=== PATIENT | male | born 1960 | race Caucasian/White ===

== ENCOUNTER 2020-05-22 08:40 | Outpatient (CLI) | payer BC, SELFPAY ==
[2020-05-22 09:09] LABS: Basophils Absolute Auto 0.06 K/mm3 (0.00-0.10); Eosinophils Absolute Auto 0.25 K/mm3 (0.02-0.50); Eosinophils Percent Auto 4.2 % (1.0-6.0); Hematocrit 42.3 % (40.0-54.0); Immature Granulocyte Absolute 0.06 K/mm3 (0.00-0.00); Lymphocytes Absolute Auto 1.77 K/mm3 (1.10-4.50); Lymphocytes Percent Auto 29.6 % (18.0-42.0); Mean Corpuscular HGB Conc 33.1 g/dL (32.0-36.0); Mean Corpuscular Volume 93.8 fL (78.0-102.0); Mean Platelet Volume 10.4 fl (8.7-11.0); Monocytes Absolute Auto 0.61 K/mm3 (0.10-0.90); Monocytes Percent Auto 10.2 % (2.0-11.0); Neutrophils Absolute Auto 3.2 K/mm3 (1.7-7.2); Platelet Count Result 256 K/mm3 (150-420); Red Blood Count 4.51 M/mm3 (4.70-6.10); Red Cell Distribution Width 12.6 % (11.6-14.4)
[2020-05-22 10:15] LABS: Alanine Aminotransferase 45 U/L (16-63); Albumin Level 4.2 g/dL (3.4-5.0); Alkaline Phosphatase 46 U/L (46-116); Anion Gap 10 mmol/L (8-16); Aspartate Amino Transferase 22 U/L (15-37); Bilirubin,Total 0.4 mg/dL (0.00-1.00); Blood Urea Nitrogen 14 mg/dL (7-18); Carbon Dioxide 27 mmol/L (21-32); Chloride 106 mmol/L (98-108); Cholesterol 173 mg/dL (0-200); Estimated Glomerular Filt Rate > 60; Free T4 Free Thyroxine 0.98 ng/dL (0.76-1.46); Glucose 92 mg/dL (70-99); HDL Direct 51 mg/dL (40-60); LDL Cholesterol Calculated 105 mg/dL (<130); Osmolality Calculated 296 mOsm/kg (285-295); Potassium 4.6 mmol/L (3.5-5.1); Prostate Specific Antigen 0.8 ng/mL (< OR = 4.0); Sodium 143 mmol/L (136-145); Total Protein 7.1 g/dL (6.4-8.2); Triglycerides 83 mg/dL (0-150)
== END 2020-05-22 08:41 | disposition home or self-care (01) ==
PROVIDERS: PCP Internal Medicine; Visit Provider Internal Medicine
DX: E78.00 Pure hypercholesterolemia, unspecified (principal); I10 Essential (primary) hypertension; N42.9 Disorder of prostate, unspecified
CPT/HCPCS: 36415; 80053; 80061; 84153; 84439; 84443; 85025

== ENCOUNTER 2020-09-11 11:21 | Outpatient (CLI) | payer BC, SELFPAY | END 2020-09-11 11:22 | disposition home or self-care (01) | LOC: ANHCOVIDVC 11:21 | PROVIDERS: PCP Internal Medicine | DX: Z23 Encounter for immunization (principal) | CPT/HCPCS: 0001A; 91300 ==

== ENCOUNTER 2020-10-02 11:21 | Outpatient (CLI) | payer BC, SELFPAY | END 2020-10-02 11:22 | disposition home or self-care (01) | LOC: ANHCOVIDVC 11:21 | PROVIDERS: PCP Internal Medicine | DX: Z23 Encounter for immunization (principal) | CPT/HCPCS: 0002A; 91300 ==

== ENCOUNTER 2021-10-30 10:56 | Observation (INO) | payer BC, SELFPAY ==
[2021-10-30] VITALS (11 sets, daily range): BP systolic 128–140; BP diastolic 74–86; PULSE 76–94; RESP 16–18; TEMP 36.3–36.9; O2SAT 93–100; BMI 32.8
--- NOTE | ~2021-10-30 | XR_ITS ---
EXAMINATION: XR chest 2V DATE: 10/30/2021 11:31 INDICATION: Chest pain TECHNIQUE: PA and lateral views of the chest are obtained. COMPARISON: None available FINDINGS: The lungs are free of acute opacities. There is no pleural effusion or pneumothorax. The ca rdiomediastinal silhouette is normal. There is moderate thoracic spondylosis. IMPRESSION: 1. No acute cardiopulmonary abnormality. Reviewed, dictated and finalized at location B.
--- NOTE | 2021-10-30 10:58 | ECG_ITS ---
Measurements Intervals [place] Rate: 81 P: 28 AL: 154 QRS: 17 QRSD: 92 T: 81 QT: 344 QTc: 399 Interpretive Statements SINUS RHYTHM NONSPECIFIC ST & T-WAVE ABNORMALITY NO PREVIOUS ECG AVAILABLE FOR COMPARISON Electronically Signed On 10-30-2021 12:52:30 CDT by Olaf Jimenez M.D.
[2021-10-30 11:23] LABS: Basophils Percent Auto 0.3 % (0.2-1.2); Eosinophils Absolute Auto 0.2 K/mm3 (0-0.3); Eosinophils Percent Auto 1.9 % (0-4.4); Hematocrit 42.6 % (42.0-52.0); Hemoglobin 14.6 g/dL (14.0-18.0); Immature Granulocyte Absolute 0.02 K/mm3 (0.00-0.031); Immature Granulocyte Percent A 0.3 % (0-0.5); Lymphocytes Absolute Auto 0.43 K/mm3 (0.9-3.2); Lymphocytes Percent Auto 5.4 % (18.3-44.2); Mean Corpuscular HGB Conc 34.3 g/dl (32-36); Mean Corpuscular Hemoglobin 31.3 pg (26-34); Mean Corpuscular Volume 91.4 fl (80-100); Mean Platelet Volume 10.2 fl (7.4-10.4); Monocytes Absolute Auto 0.4 K/mm3 (0.1-0.6); Monocytes Percent Auto 5.3 % (2.6-8.5); Neutrophils Absolute Auto 6.9 K/mm3 (1.3-6.7); Neutrophils Percent Auto 86.8 % (45.5-73.1); Platelet Count Result 230 k/mm3 (150-375); Red Blood Count 4.66 M/mm3 (4.6-6.20); Red Cell Distribution Width 12.6 % (11.5-14.5)
[2021-10-30 11:34] LABS: Alanine Aminotransferase 44 U/L (4-50); Albumin Level 4.5 g/dL (3.5-5.1); Alkaline Phosphatase 44 U/L (38-126); Anion Gap 11 mmol/L (8-16); Aspartate Amino Transferase 43 U/L (17-59); Bilirubin,Total 0.6 mg/dL (0.2-1.3); Blood Urea Nitrogen 20 mg/dL (9-20); Calcium 8.8 mg/dL (8.4-10.2); Carbon Dioxide 24 mmol/L (22-30); Chloride 103 mmol/L (98-107); Estimated CRCL calculation 94 ml/min; Estimated Glomerular Filt Rate > 60; Glucose 133 mg/dL (65-110); Lipase 114 U/L (23-300); Potassium 3.9 mmol/L (3.4-5.0); Prothrombin Time 13.1 Seconds (11.1-14.7); Sodium 138 mmol/L (137-145)
--- NOTE | 2021-10-30 11:34 | ED.CHESTPAIN ---
HPI - Chest Pain General Chief Complaint: Chest Pain Stated Complaint: chest pain Time Seen by Provider: 10/30/21 11:09 Source: patient Mode of arrival: ambulatory Limitations: no limitations History of Present Illness HPI narrative: Patient is a 61-year-old male complain of chest pain, midsternal, tightness, was 7 out of 10, currently 2 out of 10, nonradiating started early this morning. Patient denies any shortness of breath, abdominal pain, nausea, vomiting, diaphoresis, fever or chills. Related Data Allergies Allergy/AdvReac Type Severity Reaction Status Date / Time No Known Allergies Allergy Verified 10/30/21 11:38 Review of Systems Review of Systems: All systems reviewed & are unremarkable except as noted in HPI and below Constitutional: Constitutional: Denies body ache(s), Denies chills, Denies excessive sweating, Denies fatigue, Denies fever(s), Denies headache(s), Denies lethargy, Denies malaise, Denies weakness and Denies weight loss Eyes: Eyes: Denies blurry vision, Denies change in vision and Denies loss of vision ENT: Denies dizziness, Denies ear discharge, Denies headache(s), Denies lip swelling, Denies epistaxis, Denies nasal congestion, Denies neck pain, Denies throat swelling and Denies tongue swelling Cardiovascular: Cardiovascular: Denies diaphoresis, Denies rapid heart rate, Denies edema, Denies irregular heart rhythm, Denies lightheadedness, Denies palpitations, Denies dyspnea and Denies dyspnea on exertion Respiratory: Respiratory: Denies chest congestion, Denies cough, Denies hemoptysis, Denies dyspnea and Denies dyspnea on exertion Gastrointestinal: Gastrointestinal: Denies abdominal pain, Denies melena, Denies hematochezia, Denies diarrhea, Denies nausea, Denies vomiting and Denies hematemesis Musculoskeletal: Musculoskeletal: Denies abnormal gait, Denies deformity, Denies joint swelling, Denies limited range of motion, Denies neck pain and Denies numbness Neurologic: Denies Abnormal speech present, Denies abnormal gait, Denies confusion, Denies dizziness, Denies headache(s), Denies focal weakness, Denies loss of vision, Denies numbness, Denies Other visual disturbances, Denies Sensory deficit (Neuro) and Denies weakness Psychiatric: Psychiatric: Denies confusion, Denies depression, Denies auditory hallucinations, Denies homicidal ideation and Denies suicidal ideation Endocrine: Endocrine: Denies cold intolerance, Denies excessive sweating, Denies fatigue, Denies heat intolerance and Denies palpitations Hematologic/Lymphatic: Hematologic/Lymphatic: Denies easy bleeding and Denies easy bruising Allergic/Immunologic: Allergic/Immunologic: Denies lip swelling, Denies throat swelling and Denies tongue swelling PMFSH Comments Past medical history: Hypertension, hyperlipidemia Family history: Positive for coronary artery disease, [place] Social history: Non-smoker no EtOH or drug use Exam Const: General: cooperative, healthy appearing, comfortable, no acute distress, well developed, alert and awake; No confusion Orientation/consciousness: oriented to person, oriented to place, oriented to time, patient oriented x3 and No confusion Limitations: no limitations HENMT: Head: normal to inspection, normocephalic and atraumatic Ears: hearing grossly normal bilaterally, TM normal on the right and TM normal on the left General nose exam: Normal external nose present, Normal nares present and No nasal discharge present Face and sinus: normal facial exam Mouth: Yes Normal oral and palatal mucosa present, Yes lip normal, Yes tongue normal and Yes oropharynx normal Throat: posterior oropharynx normal, tonsils normal and uvula midline Eyes: General: appearance normal, both eyes and all related structures Pupils: Equal, round and reactive pupils present EOM: EOMs intact bilaterally Neck: Neck: normal visual inspection, full ROM, no lymphadenopathy and no meningeal signs Chest: Chest palpation & inspection: normal inspecti
[2021-10-30 11:45] LABS: Troponin I < 0.012 ng/mL (0.000-0.034)
[2021-10-30 14:06] LABS: SARS-CoV-2 RNA PCR Negative
[2021-10-30 14:17] LABS: Troponin I < 0.012 ng/mL (0.000-0.034)
[2021-10-30] MEDS: ASPIRIN 81 MG CHEWABLE TABLET 324 MG PO (14:26)
[2021-10-30] MEDS: ACETAMINOPHEN 325 MG TABLET 650 MG (14:27)
--- NOTE | 2021-10-30 15:00 | PM.IMHP ---
H&P: HPI History of Present Illness Date/Time: 10/30/21 15:00 <Rosi Diaz PA-C - Last Filed: 10/30/21 18:53> Chief Complaint: Chest pain. <Rosi Diaz PA-C - Last Filed: 10/30/21 18:53> Narrative: This is a pleasant 61-year-old male with hypertension, dyslipidemia, and GERD who presented to the emergency department from home for evaluation of chest pain. He had barbecue for lunch and dinner yesterday and he felt okay when he went to bed. Around midnight he was wakened from sleep with midsternal tightness and burning which he initially attributed to indigestion. He took Tums that he keeps at bedside and got up to walk around a bit at which time he started to belch with mild improvement in his symptoms. The pain did not radiate and he noticed no significant aggravating or alleviating factors. He was able to fall back asleep but he did not sleep well due to continued symptoms and he came in today for evaluation. With further questioning he does also complain of a mild, frontal headache and dizziness however he denies associated lightheadedness, sweats, nausea, vomiting, and shortness of breath. Vital signs were stable on arrival today and his imaging and lab work have been essentially unremarkable. At the time of this dictation he has had negative troponins x2 and his EKG showed a sinus rhythm with nonspecific ST T-wave abnormalities. Given his risk factors and family history, I was asked to admit him overnight for closer observation and Cardiology consultation. At this time he has no significant discomfort and he is resting comfortably though he continues to have a mild headache. <Rosi Diaz PA-C - Last Filed: 10/30/21 18:53> Review of Systems Review of Systems: Twelve systems were reviewed. No fever, chills, or sweats. It is not necessarily unusual for him to have headaches. No cold or flu symptoms. No sick contacts. 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 He is also quite active around the house though over the last year so he has noticed increasing fatigue and shortness of breath when doing yard work and gardening though he has not had exertional chest pain. He denies nausea and vomiting. No melena or hematochezia. No history of peptic ulcers, pancreatitis, or gallbladder disease. No significant NSAID use. He has never had signs or symptoms of alcohol withdrawal. Except as documented, all other systems were reviewed and are negative. <Rosi Diaz PA-C - Last Filed: 10/30/21 18:53> [facility] Past Medical History Medical History: Medical History (Updated 10/30/21 @ 18:41 by Rosi Diaz PA-C) Arthritis Daily consumption of alcohol Dyslipidemia Gastroesophageal reflux disease Gout Hypertension <Rosi Diaz PA-C - Last Filed: 10/30/21 18:53> Surgical History Surgical History: Surgical History (Updated 10/30/21 @ 18:38 by Rosi Diaz PA-C) History of vasectomy History of wisdom tooth extraction <Rosi Diaz PA-C - Last Filed: 10/30/21 18:53> Family History Family History: Family History (Updated 10/30/21 @ 18:39 by Rosi Diaz PA-C) Father Lung cancer Acute myocardial infarction Mother Breast cancer <Rosi Diaz PA-C - Last Filed: 10/30/21 18:53> Social History Social History: Social History (Updated 10/30/21 @ 18:40 by Rosi Diaz PA-C) Social History: Surrogate decision maker: Andie Vuong, spouse. Code status: Full code. Smoking status: Never smoker Alcohol intake: current Drinks per week: 24 Alcohol use details: 3 to 4 beers most nights of the week in addition to a whiskey drink. Substance use: current Substance use type: marijuana Additional living arrangements comments: The patient lives with his in [place]. Occupation/Education: retired Spiritual care concerns: No <Rosi Diaz PA-C - Last Filed: 10/30/21 18
[2021-10-30 17:49] LABS: Troponin I < 0.012 ng/mL (0.000-0.034)
--- NOTE | 2021-10-30 18:28 | PC.NURSE ---
This patient, Rey Vuong, was admitted to IMU Room 209-01. Patient/family oriented to hospital policies and general routines including ID bracelet, bed and alarms, visiting hours, pain management, procedures, bathroom and other care routines, personal items, smoking policy, room service/diet, and visiting hours. Information on how to activate the Rapid Response Team has been discussed. Patient/Family are encouraged to report perceived risks to care and to ask questions if they do not understand what they are told or what they should do.
[2021-10-30] MEDS: PANTOPRAZOLE 40 MG TABLET PO (21:06)
[2021-10-31] VITALS (7 sets, daily range): BP systolic 116–131; BP diastolic 71–76; PULSE 70–84; RESP 16–18; TEMP 36.2–36.6; O2SAT 95–98
[2021-10-31 05:15] LABS: Anion Gap 7 mmol/L (8-16); Blood Urea Nitrogen 19 mg/dL (9-20); Calcium 8.2 mg/dL (8.4-10.2); Carbon Dioxide 23 mmol/L (22-30); Chloride 106 mmol/L (98-107); Estimated CRCL calculation 86 ml/min; Estimated Glomerular Filt Rate > 60; Glucose 100 mg/dL (65-110); Magnesium 1.9 mg/dL (1.6-2.3); Phosphorus 3.1 mg/dL (2.5-4.5); Potassium 3.8 mmol/L (3.4-5.0); Sodium 136 mmol/L (137-145)
--- NOTE | 2021-10-31 08:25 | PM.CNCAR ---
Assessment and Plan Assessment and plan (1) Chest pain: Qualifiers: Chest pain type: unspecified Qualified Code(s): R07.9 - Chest pain, unspecified Code(s): R07.9 - Chest pain, unspecified Status: Acute Assessment and Plan: Chest discomfort consistent with GERD. No exertional pain, negative biomarkers, normal EKG. Agree with discontinuing celecoxib Agree with PPI Reviewed signs and symptoms of heart disease with the patient and congratulated the patient on being proactive about taking care of his blood pressure, hyperlipidemia etc.. Okay for discharge from my point of view My office will arrange an outpatient stress test (2) Hypertension: Code(s): I10 - Essential (primary) hypertension Status: Acute Assessment and Plan: Blood pressure at goal (3) Dyslipidemia: Code(s): E78.5 - Hyperlipidemia, unspecified Status: Acute Assessment and Plan: Takes simvastatin (4) Gastroesophageal reflux disease: Code(s): K21.9 - Gastro-esophageal reflux disease without esophagitis Status: Acute Assessment and Plan: Symptoms consistent with GERD History of Present Illness History of Present Illness Consult date/time: 10/31/21 08:25 Requesting physician: Jared Jaramillo MD Consult reason: chest pain Reason For Visit: Chest pain Narrative: Rey Vuong is a 61 y.o. male whom I was asked to see at the request of Dr. Jaramillo for my advice and opinion regarding his chest pain in consultation. He has a history of hypertension, hyperlipidemia and GERD. Nonsmoker. Positive family history of heart disease. Mr. Vuong has been having trouble for a few months working up with some heartburn, usually relieved by belching and a couple of Tums. On 10/29/2021 he went to bed as usual with no problems but woke up around midnight with substernal chest discomfort described as a bad heartburn. He also felt a little dizzy and short of breath and had a headache. There is no nausea, vomiting, diaphoresis or radiation. He got up and took his Tums but this time the discomfort did not go away. His was concerned and he came to the emergency room. He was started on pantoprazole and the discomfort has resolved. The patient can exert with yd work etc. with no particular problems with any chest pain pressure or tightness or heartburn. He has noted a little more WELCH than he used to have. Review of Systems Constitutional: Constitutional: Denies fatigue and Denies weakness Eyes: Eyes: Reports no additional eye complaints ENT: Denies epistaxis Cardiovascular: Cardiovascular: Reports chest pain, Denies diaphoresis, Denies pedal edema, Reports lightheadedness and Denies palpitations Respiratory: Respiratory: Denies cough and Reports dyspnea on exertion Gastrointestinal: Gastrointestinal: Denies abdominal pain and Reports heartburn Genitourinary: Genitourinary: Denies dysuria Musculoskeletal: Musculoskeletal: Reports no additional musculoskeletal complaints Integumentary/Breasts: Skin/Breast: Denies rash Neurologic: Denies confusion and Reports headache(s) Psychiatric: Psychiatric: Denies behavioral changes [facility] Past Medical History Medical History Arthritis Daily consumption of alcohol Dyslipidemia Gastroesophageal reflux disease Gout Hypertension Surgical History Surgical History History of vasectomy History of wisdom tooth extraction Family History Family History (Updated 10/31/21 @ 08:55 by Celena Carcamo MD) Father Lung cancer Acute myocardial infarction Had heart attack around the age of 60 Mother Breast cancer Social History Social History (Updated 10/31/21 @ 08:55 by Celena Carcamo MD) Social History: Surrogate decision maker: Andie Vuong, spouse. Code status: Full code. Retired, worked
[2021-10-31] MEDS: lisinopriL 20 MG TABLET 40 MG PO (08:51)
[2021-10-31] MEDS: FENOFIBRATE,MICRONIZED 48 MG TABLET PO (08:52)
[2021-10-31] MEDS: PANTOPRAZOLE 40 MG TABLET PO (08:52)
[2021-10-31] MEDS: FOLIC ACID 1 MG TABLET PO (08:52)
[2021-10-31] MEDS: ENOXAPARIN 40 MG/0.4 ML SYRINGE SUB-Q (08:52)
[2021-10-31] MEDS: THIAMINE HCL 100 MG TABLET PO (08:52)
[2021-10-31] MEDS: SIMVASTATIN 20 MG TABLET 40 MG PO (08:52)
--- NOTE | 2021-10-31 17:25 | PM.DS ---
DS: Admitting Diagnosis Discharge Date 10/31/21 Admitting Diagnosis Chest pain DS: Discharge Diagnosis Discharge Diagnosis (1) Gastroesophageal reflux disease: Code(s): K21.9 - Gastro-esophageal reflux disease without esophagitis Status: Acute DS: Summary Hospital Course Reason for hospitalization: Chest pain Hospital Course: 61-year-old male with past medical history significant for hypertension, hyperlipidemia and GERD presented to the ER with chest pain. He woke up around midnight with chest tightness and burning. He initially thought was indigestion and tried some Tums. These only improved his symptoms mildly. The pain started to radiate into the shoulders and neck and he tried to fall back asleep. He eventually came to the ER because the symptoms would not resolve. EKG showed nonspecific T-wave abnormalities and troponins were negative x2. Cardiology was consulted for further evaluation. After evaluation, Cardiology recommended outpatient stress testing and that the etiology of the symptoms was likely secondary to GERD. He was started on PPI and symptoms improved. He is also recommended to discontinue his NSAID use at home. Status at Discharge Functional status at discharge: independent ambulation Time Spent with Patient Time attestation: Total time spent providing and/or coordinating discharge services: Less than 30 minutes Exam Const: General: no acute distress HENMT: Mouth: Yes moist mucous membranes Eyes: General: appearance normal, both eyes and all related structures Neck: Neck: no JVD Resp: Auscultation: clear to auscultation bilaterally Cardio: Rate: regular rate Rhythm: regular rhythm GI: Inspection: non-distended GI Palp: Yes Soft to palpation and No Tenderness to palpation present (GI) Skin: General skin exam: no rashes or lesions noted Neuro: General: gait normal Psych: Mental Status: mental status grossly normal DS: Data Data Completed and Pending Labs on day of discharge: Labs from last 24 hours 10/31/21 10/30/21 04:40 17:11 Sodium 136 L Potassium 3.8 Chloride 106 Carbon Dioxide 23 Anion Gap 7 L BUN 19 Creatinine 0.90 Estim Creat Clear Calc 86 Estimated GFR > 60 Glucose 100 Calcium 8.2 L Phosphorus 3.1 Magnesium 1.9 Troponin I < 0.012 Discharge Plan Discharge Attending physician on discharge: Joyce Vieira Consulting providers: Olaf Jimenez ; Steve Cadena ; Rosi Diaz ; Celena Carcamo Discharging Clinician: Joyce Vieira Anticipated Discharge Date/Time: 10/31/21 13:38 Patient Disposition: Home, Self-Care Activity: as tolerated Diet: as tolerated Discharge Instructions: Dr. Carcamo's office will arrange for an outpatient stress test. [facility] Cardiology: [phone]. Call if any questions. Address: [address] [place] [address] [address], [address], [place] [address]. Our office is on the ground floor next to the [employer] shop of the doctor's office building. Enter through the main entrance for COVID screening. Patient Instructions: Pantoprazole (By mouth), Chest Pain (DC), Cardiac Stress Test (DC) Stand Alone Forms: General Discharge Information Follow-up/Referrals: Olaf Jimenez MD [Physician] - Discharge Medications: New pantoprazole 40 mg Tablet,Delayed Release (Dr/Ec) 40 mg PO QAM Qty: 60 RF: 0 Continued simvastatin 40 mg tablet 40 mg PO DAILY RF: 0 lisinopril 40 mg tablet 40 mg PO DAILY RF: 0 hydrochlorothiazide 12.5 mg tablet 12.5 mg PO 3XW RF: 0 fenofibrate 54 mg tablet 54 mg PO DAILY RF: 0 clotrimazole 1 % solution 1 applic TOPICAL BID RF: 0 Held celecoxib 200 mg capsule 200 mg PO DAILY RF: 0 Hold Instructions: Resume on 11/07/21. Date of admission: 10/30/21 14:36 Primary Care Provider: Joni,Dion Hernandez Admitting Provider: Dipti Valente Attending physician on admission: Mady
== END 2021-10-31 14:17 | disposition home or self-care (01) ==
LOC: ANHED 13:05 → ANHIMU 15:45
PROVIDERS: Physician Assistant; Admitting Provider Internal Medicine; Emergency Provider Emergency Medicine; PCP Internal Medicine; Visit Provider Student in an Organized Health Care Education/Training Program
DX: R07.9 Chest pain, unspecified (principal); I10 Essential (primary) hypertension; K21.9 Gastro-esophageal reflux disease without esophagitis; Z82.49 Family history of ischemic heart disease and other diseases of the circulatory system; Z78.9 Other specified health status; Z20.822 Contact with and (suspected) exposure to COVID-19
CPT/HCPCS: 36415; 71046; 80048; 80053; 83690; 83735; 84100; 84484; 85025; 85610; 85730; 93005; 96372; 99285; A9270; C9803; G0378; J1650; U0003; U0005

== ENCOUNTER 2021-12-31 01:19 | Day surgery (SDC) | payer BC, SELFPAY ==
[2021-12-30 15:39] VITALS: BMI 31.8
[2021-12-31] VITALS (9 sets, daily range): BP systolic 111–123; BP diastolic 60–87; PULSE 54–68; RESP 12–16; TEMP 35.9–36.3; O2SAT 95–99; BMI 31.8
[2021-12-31] MEDS: SODIUM CHLORIDE 0.9% IV 500 ML 100 ML IV CONT (10:45)
[2021-12-31 10:59] LABS: Basophils Absolute Auto 0.1 K/mm3 (0.0-0.1); Basophils Percent Auto 0.9 % (0.2-1.2); Eosinophils Absolute Auto 0.1 K/mm3 (0-0.3); Eosinophils Percent Auto 2.7 % (0-4.4); Hematocrit 41.6 % (42.0-52.0); Hemoglobin 14.2 g/dL (14.0-18.0); Immature Granulocyte Absolute 0.01 K/mm3 (0.00-0.031); Immature Granulocyte Percent A 0.2 % (0-0.5); Lymphocytes Percent Auto 30.3 % (18.3-44.2); Mean Corpuscular HGB Conc 34.1 g/dl (32-36); Mean Corpuscular Hemoglobin 31.1 pg (26-34); Mean Platelet Volume 10.7 fl (7.4-10.4); Monocytes Absolute Auto 0.7 K/mm3 (0.1-0.6); Monocytes Percent Auto 12.7 % (2.6-8.5); Neutrophils Absolute Auto 2.8 K/mm3 (1.3-6.7); Neutrophils Percent Auto 53.2 % (45.5-73.1); Platelet Count Result 262 k/mm3 (150-375); Red Blood Count 4.57 M/mm3 (4.6-6.20); Red Cell Distribution Width 12.9 % (11.5-14.5); White Blood Count 5.3 K/mm3 (4.5-10.0)
[2021-12-31 11:15] LABS: Anion Gap 6 mmol/L (8-16); Blood Urea Nitrogen 15 mg/dL (9-20); Calcium 9.2 mg/dL (8.4-10.2); Carbon Dioxide 25 mmol/L (22-30); Chloride 108 mmol/L (98-107); Estimated CRCL calculation 85 ml/min; Estimated Glomerular Filt Rate > 60; Glucose 99 mg/dL (65-110); Potassium 4.1 mmol/L (3.4-5.0); Sodium 139 mmol/L (137-145)
--- NOTE | 2021-12-31 11:59 | P.HPUP_ITS ---
History and Physical Update Update Date/Time: 12/31/21 11:59 Patient admitted 10/30/2009 2 with an episode of severe substernal discomfort and heartburn which awoke him at night. [place] this was GI in discharge but follow-up stress test showed a small area of mild ischemia at the apex but 1-[address] depression starting about 3 minutes and exercise, 6.48 minutes, stress test associated with WELCH but no chest pain. If felt prudent to recommend further evaluation with a cardiac catheterization. Patient does continue to have WELCH with activity. Rare heartburn, now related to certain food intake such as salsa. History and Physical has been reviewed, including an updated exam of the patient. There are NO changes in the patient's condition. Risks, benefits, and alternatives have been discussed and questions answered. Reviewed possible risks and complications with patient including breathing problems, bleeding problems, blood vessel problems, unanticipated surgery, allergic reactions, kidney problems, CVA, CO, and among others. Discussed possibility of stenting and possible need for DAPT. Discussed the possibility that if DAPT is interrupted stent thrombosis can occur resulting in heart attack and . Patient understands risks and desires to proceed. Patient agrees to proceed with procedure.
--- NOTE | 2021-12-31 12:04 | WPDMODSED ---
Moderate Sedation Note-Pt Data Patient Data Diagnosis: Chest discomfort, abnormal stress test Present Complaint: History and Physical Update Update Date/Time: 12/31/21? 11:59 Patient admitted 10/30/2009 2 with an episode of severe substernal discomfort and heartburn which awoke him at night.? [place] this was GI in discharge but follow-up stress test showed a small area of mild ischemia at the apex but 1-[address] depression starting about 3 minutes and exercise, 6.48 minutes, stress test associated with WELCH but no chest pain.? If felt prudent to recommend further evaluation with a cardiac catheterization.? Patient does continue to have WELCH with activity.? Rare heartburn, now related to certain food intake such as salsa.? Procedure to be performed/Plan: Conscious sedation Left heart catheterization Possible PCI Allergies Allergy/AdvReac Type Severity Reaction Status Date / Time No Known Allergies Allergy Verified 12/30/21 15:35 Home Medications Medication Instructions Recorded Confirmed Type celecoxib 200 mg capsule 200 mg PO DAILY 10/30/21 12/30/21 History fenofibrate 54 mg tablet 54 mg PO DAILY 10/30/21 12/30/21 History hydrochlorothiazide 12.5 mg tablet 12.5 mg PO 3XW 10/30/21 12/30/21 History lisinopril 40 mg tablet 40 mg PO DAILY 10/30/21 12/30/21 History simvastatin 40 mg tablet 40 mg PO DAILY 10/30/21 12/30/21 History pantoprazole 40 mg tablet,delayed 40 mg PO QAM #60 tabs 10/31/21 12/30/21 Rx release aspirin 81 mg tablet,delayed 81 mg PO DAILY 12/30/21 12/30/21 History release Current Medications: Active Medications Sodium Chloride (Normal Saline Iv) 500 mls @ 100 mls/hr IV CONT .Q5H PATTIE Sedation/Anesthesia: No previous sedation/anesthesia problems (including family history). [facility] Past Medical History Medical History Arthritis Daily consumption of alcohol Dyslipidemia Gastroesophageal reflux disease Gout Hypertension Surgical History Surgical History History of vasectomy History of wisdom tooth extraction Family History Family History Father Lung cancer Acute myocardial infarction Had heart attack around the age of 60 Mother Breast cancer Social History Social History Social History: Surrogate decision maker: Andie Vuong, spouse. Code status: Full code. 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 Smoking status: Unknown if ever smoked Alcohol intake: current Drinks per week: 24 Alcohol use details: 3 to 4 beers most nights of the week in addition to a whiskey drink. Substance use: current Substance use type: marijuana Living arrangements: with family Additional living arrangements comments: The patient lives with his in [place]. Spiritual care concerns: No Mod Sed Physical Exam Physical Exam Pre Procedural Exam: Normal: Appearance, Eyes, Ears, Nose, Neck, Throat, Airway, Lungs, Heart Size, Heart Rate, Heart Rhythm, Neuro Exam, Abdomen, Extremities (Intact pedal pulses. Good femoral pulses with no bruits) and Skin Hours since solid foods: 12 Hours since liquid intake: 12 Mallampati Classification: class II Internal Medicine - PN: Obj Da Vital Signs Vital Signs: Vital Signs - 24 hr 12/31/21 10:39 Temperature 97.3 F L Pulse Rate 58 L Respiratory Rate 12 Blood Pressure 118/87 Pulse Oximetry 99 Oxygen Delivery Room Air Meds/Results Medications: Active Medications Generic Name Dose Route Start Last Admin Trade Name Freq PRN Reason Stop Dose Admin Sodium Chloride 500 mls @ 100 mls/hr 12/31/21 10:30 Normal Saline Iv IV CONT .Q5H PATTIE Labs CBC & Chem 7: 12/31/21 10:52 12/31/21 10:52 Labs: Laboratory Results - last 24 hr
--- NOTE | 2021-12-31 13:04 | PM.OP ---
Procedure Note - Brief Procedure Note - Brief Date of procedure: 12/31/21 Pre-op diagnosis: chest pain, abnormal stress test Post-op diagnosis: Same Procedure performed: Heart catheterization Description of procedure: uneventful left heart catheterization Angio-Seal closure Surgeon: Celena Carcamo MD Findings: 50-60% Left main 90% and 60-70% mid Left anterior descending Normal LV
--- NOTE | 2021-12-31 13:06 | WPDCARDPROC ---
Cardiac Cath Procedure Note Date of procedure:: 12/31/21 Performing physician:: Celena Carcamo MD Indication:: Recent onset of chest discomfort, abnormal stress test Brief clinical history:: Patient admitted 10/30/2021 with an episode of severe substernal discomfort and heartburn which awoke him at night.? After evaluation, I felt this was GI and the patient was discharged on a PPI. A follow-up stress test showed a small area of mild ischemia at the apex but 1-[address] depression starting about 3 minutes of exercise exercise, 6.48 minutes of exercise total, showing decreased exercise tolerance, and his stress test was associated with WELCH but no chest pain.? If felt prudent to recommend further evaluation with a cardiac catheterization.? Patient does continue to have WELCH with activity.? Rare heartburn, now related to certain food intake such as salsa.? Procedure Procedure performed:: Procedure: 1. Conscious sedation 2. Left heart catheterization 3. Selective Coronary angiography 4. Left ventriculography 5. Angiography of the right common femoral artery Sedation/Medication given:: Conscious sedation: The patient has no known prior history of adverse affects of conscious sedation. Oropharynx was clear. The patient is deemed a good candidate for conscious sedation. Conscious sedation began at: 1228 Conscious sedation ended at: 1301 Total conscious sedation time: 33 minutes Medications: Versed 2 mg, fentanyl 100 mcg IV push The patient had continuous hemodynamic monitoring, and was also continuously monitored by: Gregory Worely, The patient tolerated conscious sedation well. Access site:: Site: Right femoral artery Estimated blood loss:: 5 cc Procedure note:: Catheters: 5 [place] arterial sheath, 5 [place] 4 cm right and left Jose Ramon catheters, 5 [place] pigtail cathete Detailed procedure: After informed consent the patient brought to the computer lab assistant and the right femoral area was prepped and draped in the usual fashion. After conscious sedation and local anesthesia the right femoral artery was punctured and cannulated with the arterial sheath. Selective Coronary angiography was performed with the coronary catheters in multiple projections. These were withdrawn. Some dampening of the pressure tracing was noted with engagement of the left main. The pigtail catheter was advanced into the central circulation and left ventricle for pressure measurements and left ventriculography which was performed in the VU projection. This was withdrawn. Later angiography of the right common femoral artery was performed the sheath was not suitable position for a vascular closure device. The arterial sheath was removed and hemostasis was obtained using Angio-Seal. The patient tolerated the procedure well with no complications. Estimated blood loss was negligible. Findings:: Pressures: Aortic pressure 110/65 mmHg and LV was 110/10 mmHg Left coronary artery: Left main had a high takeoff, with a shelf -like 50-60% stenosis in the mid segment. The Left anterior descending and circumflex for large caliber vessels. The mid Left anterior descending had a 90% followed by a 70% stenosis. Otherwise these vessels appeared to be free of atherosclerotic disease. Right coronary artery: The dominant right coronary artery was free of disease Left ventriculogram: Left ventriculography revealed good systolic function of all segments, ejection fraction 65%, with no mitral regurgitation. Angiography the right common femoral artery: No evidence of atherosclerosis Conclusion:: CONCLUSION: Coronary artery disease with a shelf life 50-60% stenosis of the mid Left anterior descending (dampening of the pressure tracing was noted during engagement of the catheter), and 90% than 70% stenosis of the mid Left anterior descending. Normal left ventricular systolic function, ejection fraction 65%. Assessment and Plan Assessment and plan (1) CAD (c
[2021-12-31 15:10] LABS: Cholesterol 153 mg/dL (0-200); HDL Direct 35 mg/dL; Triglycerides 156 mg/dL (<150)
[2021-12-31 15:20] LABS: LDL Cholesterol Direct 85 mg/dL
== END 2021-12-31 17:05 | disposition home or self-care (01) ==
PROVIDERS: PCP Internal Medicine; Visit Provider Internal Medicine Cardiovascular Disease
PROC: 4A023N7 Measurement of Cardiac Sampling and Pressure, Left Heart, Percutaneous Approach (ICD-10-PCS; CPT 93452; principal; 2021-12-31 12:00)
DX: I25.10 Atherosclerotic heart disease of native coronary artery without angina pectoris (principal); R94.39 Abnormal result of other cardiovascular function study; R07.9 Chest pain, unspecified; R06.00 Dyspnea, unspecified; I10 Essential (primary) hypertension; E78.5 Hyperlipidemia, unspecified; K21.9 Gastro-esophageal reflux disease without esophagitis; M10.9 Gout, unspecified; M19.90 Unspecified osteoarthritis, unspecified site
CPT/HCPCS: 36415; 80048; 80061; 85025; 93458; C1887; C1894; J1644; J2250; J3010; J7040

== ENCOUNTER 2022-06-03 08:30 | Outpatient (RCR) | payer BC, SELFPAY ==
[2022-05-11 08:12] VITALS: PULSE 78
== END 2022-06-07 08:52 | disposition home or self-care (01) ==
LOC: ANHCPREHAB 08:30
PROVIDERS: PCP Internal Medicine; Visit Provider Internal Medicine Cardiovascular Disease
DX: Z95.1 Presence of aortocoronary bypass graft (principal)
CPT/HCPCS: 93798

== ENCOUNTER 2023-03-04 03:26 | Day surgery (SDC) | payer BC, SELFPAY ==
[2023-02-23 15:26] VITALS: BMI 33.2
[2023-03-04 09:20] VITALS: BP 148/84; PULSE 68; RESP 16; TEMP 36.2; O2SAT 100
[2023-03-04] MEDS: LACTATED RINGERS 1,000 ML 150 ML IV CONT (09:29)
--- NOTE | 2023-03-04 09:47 | WPDANESEPPF ---
Anes - Initial Pre Proc Eval Procedure: Operation Date: 03/04/23 10:45 Proposed Procedures p Colonoscopy - Jhonathan Alfred MD Date/Time: 03/04/23 09:47 Surgeon: Jhnoathan Alfred MD Pre Op Diagnosis: hx colon polyps Patient Data Age: 62 Gender: M Height: 1.75 m Weight: 100 kg Last Vital Signs Temp 97.2 F L 03/04/23 09:20 Pulse 68 03/04/23 09:20 Resp 16 03/04/23 09:20 BP 148/84 H 03/04/23 09:20 Pulse Ox 100 03/04/23 09:20 O2 Del Method Room Air 03/04/23 09:20 Allergies Allergy/AdvReac Type Severity Reaction Status Date / Time No Known Allergies Allergy Verified 03/04/23 09:19 Home Medications Medication Instructions Recorded Confirmed Type aspirin 81 mg tablet,delayed 81 mg PO DAILY 12/30/21 02/23/23 History release celecoxib 200 mg capsule 200 mg PO DAILY 05/11/22 02/23/23 History metoprolol succinate 25 mg 25 mg PO DAILY 05/11/22 02/23/23 History tablet,extended release 24 hr ezetimibe 10 mg tablet 10 mg PO DAILY 02/23/23 02/23/23 History rosuvastatin 40 mg tablet 40 mg PO DAILY 02/23/23 02/23/23 History Patient hx anesthesia problems: none Family hx anesthesia problems: none Results Review: All pre-operative results and documents have been reviewed as part of the pre-operative evaluation. FOR[facility] Past Medical History Medical History (Updated 12/31/21 @ 18:45 by Celena Carcamo MD) Arthritis CAD (coronary artery disease) Daily consumption of alcohol Dyslipidemia Gastroesophageal reflux disease Gout Hypertension Surgical History Surgical History History of vasectomy History of wisdom tooth extraction Family History Family History (Updated 12/31/21 @ 13:44 by Celena Carcamo MD) Father Lung cancer Mother Breast cancer Social History Social History Social History: Surrogate decision maker: Andie Leijaha, spouse. Code status: Full code. 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 Smoking status: Never smoker Smokeless tobacco user: chewing tobacco Additional smoking assessment comments: Stopped chewing 20 years ago Alcohol intake: current Drinks per week: 25 Alcohol use details: BEER/SHOTS WHISKEY Substance use: current Substance use type: marijuana Other substance usage details: SMOKES 3-4 TIMES Living arrangements: with family Additional living arrangements comments: The patient lives with his in [place]. Occupation/Education: retired Spiritual care concerns: No Anes - Eval Final PreProcedure Day of Procedure 03/04/23 09:47 Patient weight: obese Heart: regular rate and rhythm Lungs: clear to auscultation Airway: Mallampati scale class II Neurological: alert and oriented Last oral intake: >/= 8 hours ASA classification: III Emergent: no Anesthetic plan: proceed Anesthesia type and monitoring: general GIVS and standard monitoring Results Review: All pre-operative results and documents have been reviewed as part of the pre-operative evaluation. Informed Consent: The patient's anesthetic plan and its attendant risks and benefits were discussed with the patient/family/POA. Questions were solicited and answers provided to the satisfaction of the patient/family/POA.
--- NOTE | 2023-03-04 10:15 | P.HP_ITS ---
History of Present Illness History of Present Illness Consent: Risks, benefits, and alternatives have been discussed and questions answered. Patient agrees to proceed with procedure. Chief complaint: hx colon polyps Narrative: Rey Vuong is a 62 year old male Referred for colon cancer screening. He has a history of polyps per Review of Systems Review of Systems: All systems reviewed & are unremarkable except as noted in HPI and below PMFSH Past Medical History Medical History Arthritis CAD (coronary artery disease) Daily consumption of alcohol Dyslipidemia Gastroesophageal reflux disease Gout Hypertension Surgical History Surgical History History of vasectomy History of wisdom tooth extraction Family History Family History Father Lung cancer Mother Breast cancer Social History Social History Social History: Surrogate decision maker: Andie Vuong, spouse. Code status: Full code. 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 Smoking status: Never smoker Smokeless tobacco user: chewing tobacco Additional smoking assessment comments: Stopped chewing 20 years ago Alcohol intake: current Drinks per week: 25 Alcohol use details: BEER/SHOTS WHISKEY Substance use: current Substance use type: marijuana Other substance usage details: SMOKES 3-4 TIMES Living arrangements: with family Additional living arrangements comments: The patient lives with his in [facility]. Occupation/Education: retired Spiritual care concerns: No Meds Home Medications and Allergies Home Medications Medication Instructions Recorded Confirmed Type aspirin 81 mg tablet,delayed 81 mg PO DAILY 12/30/21 02/23/23 History release celecoxib 200 mg capsule 200 mg PO DAILY 05/11/22 02/23/23 History metoprolol succinate 25 mg 25 mg PO DAILY 05/11/22 02/23/23 History tablet,extended release 24 hr ezetimibe 10 mg tablet 10 mg PO DAILY 02/23/23 02/23/23 History rosuvastatin 40 mg tablet 40 mg PO DAILY 02/23/23 02/23/23 History Allergies Allergy/AdvReac Type Severity Reaction Status Date / Time No Known Allergies Allergy Verified 03/04/23 09:19 Vital Signs Vital Signs - 24 hr 03/04/23 09:20 Temperature 36.2 C L Pulse Rate 68 Respiratory Rate 16 Blood Pressure 148/84 H Pulse Oximetry 100 Oxygen Delivery Room Air Exam Const: General: alert Orientation/consciousness: patient oriented x3 Resp: Auscultation: clear to auscultation bilaterally Cardio: Rhythm: regular rhythm GI: GI Palp: Yes Soft to palpation and No Tenderness to palpation present (GI) Neuro: General: patient oriented x3 Assessment and Plan Assessment and plan (1) Colon cancer screening: Code(s): Z12.11 - Encounter for screening for malignant neoplasm of colon Status: Acute Assessment and Plan: Colonoscopy with possible biopsy or polypectomy or cautery or injection of substances.
[2023-03-04 10:47] VITALS: BP 118/77; PULSE 68; RESP 16; O2SAT 97
[2023-03-04 10:57] VITALS: BP 135/94; PULSE 58; RESP 20; O2SAT 97
[2023-03-04 11:07] VITALS: BP 154/100; PULSE 57; RESP 20; O2SAT 95
== END 2023-03-04 11:15 | disposition home or self-care (01) ==
PROVIDERS: PCP Internal Medicine; Visit Provider Internal Medicine Gastroenterology
PROC: 0DJD8ZZ Inspection of Lower Intestinal Tract, Via Natural or Artificial Opening Endoscopic (ICD-10-PCS; CPT 45378; principal; 2023-03-04 10:45)
DX: Z12.11 Encounter for screening for malignant neoplasm of colon (principal); K64.8 Other hemorrhoids; K63.5 Polyp of colon; I25.10 Atherosclerotic heart disease of native coronary artery without angina pectoris; E78.5 Hyperlipidemia, unspecified; I10 Essential (primary) hypertension; K21.9 Gastro-esophageal reflux disease without esophagitis; M10.9 Gout, unspecified; Z79.82 Long term (current) use of aspirin; Z87.891 Personal history of nicotine dependence; E66.9 Obesity, unspecified; Z68.32 Body mass index [BMI] 32.0-32.9, adult
CPT/HCPCS: 45380; 88305; J2001; J2704; J7120